=== PATIENT | male | born 1980 | race Caucasian/White ===

== ENCOUNTER → 2020-02-08 07:32 | Outpatient (CLI) | payer BC, SELFPAY ==
--- NOTE | 2020-02-08 07:36 | US_ITS ---
PROCEDURE: US ABDOMEN LIMITED CLINICAL INDICATION: ELEVATED LFT Right upper quadrant pain COMPARISON: RUQ US RUQ-(ABD LTD)1ORGAN/QUAD/FU from 08/16/2017 FINDINGS: PANCREAS: Unremarkable. No obvious mass or abnormal fluid collection. No ductal dilatation LIVER: No focal liver lesions demonstrated. There is diffuse increased echogenicity of the liver with decreased ultrasound beam penetration consistent with fatty infiltration. Homogeneous echogenicity. No intrahepatic biliary ductal dilatation evident. There is appropriate direction of blood flow within a non dilated portal vein RIGHT KIDNEY: Unremarkable. Normal size and echogenicity. No hydronephrosis GALLBLADDER: No gallstones, gallbladder wall thickening, pericholecystic fluid, or biliary dilatation. There are some echogenicities projecting within the gallbladder lumen likely reverberation artifact. A small amount of sludge is not excluded. IMPRESSION: Diffuse fatty infiltration of the liver. Possible small amount of sludge versus reverberation artifact in the gallbladder. Dictated by: Brain Amezcua 02/08/2020 09:27 Electronically signed by Brain Amezcua in [place] 02/08/2020 09:27
== END ==
PROVIDERS: PCP Nurse Practitioner Family; Visit Provider Nurse Practitioner Family
DX: R79.89 Other specified abnormal findings of blood chemistry (principal)
CPT/HCPCS: 76705

== ENCOUNTER → 2021-09-01 17:16 | Outpatient (CLI) | payer BC, SELFPAY | PROVIDERS: Visit Provider Nurse Practitioner | DX: Z20.822 Contact with and (suspected) exposure to COVID-19 (principal) | CPT/HCPCS: C9803; U0003; U0005 ==

== ENCOUNTER → 2021-11-20 14:07 | Outpatient (CLI) | payer BC, SELFPAY | PROVIDERS: PCP Family Medicine; Visit Provider Nurse Practitioner | DX: U07.1 COVID-19 (principal) | CPT/HCPCS: C9803; U0003; U0005 ==

== ENCOUNTER → 2023-03-01 07:32 | Outpatient (CLI) | payer BC, SELFPAY ==
--- NOTE | 2023-03-01 | CA_ITS ---
APPROVED REPORT Exam: Exercise Treadmill Technologist: Melody Cuevas Ht: 5 ft 9 in Wt: 222 lbs BSA: 2.16 m2 HR: 68 bpm BP: 147/95 mmHg Indications: Exertional chest pain, abnormal ekg Medical History Medications: Metoprolol,,,,, Atorvastatin,,,,, Prozac,,,,, Stress Test Details Test: Fernando HR Resting HR: 85 bpm Max Heart Rate (APMHR): 179.222012 bpm Max HR Achieved: 158 bpm Target HR (85% APMHR): 152.501805 bpm % of APMHR: 88.27 Recovery HR: 89 bpm BP Resting BP: 147.0/95.0 mmHg Max BP: 182.0/92.0 mmHg Recovery BP: 141.0/85.0 mmHg ECG Resting ECG: Normal sinus rhythm Clinical Reason for Termination: Dyspnea Exercise duration: 10:01 min Highest Stage Achieved: Exercise capacity: 12.8 METs Stress ECG Conclusion Negative stress test. Patient exercised on a fernando protocol for 10 minutes to peak heart rate of 157 beats per minute (target heart rate 152 beats per minute) without chest pain, significant ST segment changes(less than 1.[address] depression) or significant arrhythmias (rare PVC noted). Total METS acheived 12.8. No imaging ordered. Maximum blood pressure 170/90 mm Hg in stress with maximum blood pressure 182/92 mm Hg in early recovery. Test Summary REST . . . . . . . Sitting REST . . . . . . . Standing REST 11:19 0.0 0.0 85 . 147/ 95 . . Stage 1 01:00 10.0 1.7 100 . . . . Stage 1 02:00 10.0 1.7 111 . . . . Stage 1 03:00 10.0 1.7 118 . 142/ 82 . . Stage 2 01:00 12.0 2.5 124 . . . . Stage 2 02:00 12.0 2.5 125 . . . . Stage 2 03:00 12.0 2.5 125 . 160/ 88 . . Stage 3 01:00 14.0 3.4 139 . . . . Stage 3 02:00 14.0 3.4 145 . 170/ 90 . . Stage 3 03:00 14.0 3.4 144 . 170/ 90 . . Stage 4 01:00 16.0 4.2 156 . . . . Stage 4 01:01 16.0 4.2 156 . . . Stop exercise at 10:01 RECOVERY 01:00 0.0 0.0 122 . . . . RECOVERY 02:00 0.0 0.0 102 . 182/ 92 . . RECOVERY 03:00 0.0 0.0 93 . 182/ 92 . . RECOVERY 04:00 0.0 0.0 87 . 182/ 92 . . RECOVERY 05:00 0.0 0.0 88 . 141/ 85 . . RECOVERY 05:23 0.0 0.0 86 . 141/ 85 . . Electronically signed by : Cleve Méndez MD 03/08/2023 10:44:21
== END ==
PROVIDERS: PCP Family Medicine; Visit Provider Physician Assistant
DX: R07.9 Chest pain, unspecified (principal)
CPT/HCPCS: 93017; 93306